=== PATIENT | female | born 1980 | race Caucasian/White ===

== ENCOUNTER 2023-10-22 14:59 | Emergency (ER) | payer OTHER ==
[~2023-10-22] VITALS: Ht 167.6 cm; Wt 85.7 kg
[2023-10-22 15:05] VITALS: BP 142/74; PULSE 90; RESP 16; TEMP 98.2; O2SAT 97
[2023-10-22] MEDS ORDERED: CEPH500C16 PO (17:28)
[2023-10-22] MEDS ORDERED: ACET-503 PO (17:28)
[2023-10-22 17:46] VITALS: BP 140/72; PULSE 87; RESP 18; TEMP 97.9; O2SAT 97
== END 2023-10-22 17:47 | disposition home or self-care (01) ==
LOC: MED 14:59
DX: L03.211 Cellulitis of face (principal); Z88.2 Allergy status to sulfonamides; Z88.5 Allergy status to narcotic agent
CPT/HCPCS: 99283